=== PATIENT | female | born 1965 | race African-American/Black ===

== ENCOUNTER 2018-03-30 14:36 | Emergency (ER) | payer OTHER ==
[2018-03-30] MEDS: KETOROLAC 60 MG/2 ML VIAL (J1885) IM (17:09)
== END 2018-03-30 18:09 | disposition home or self-care (01) ==
LOC: M ED 14:36
DX: S29.012A Strain of muscle and tendon of back wall of thorax, initial encounter (principal); S53.401A Unspecified sprain of right elbow, initial encounter; V43.52XA Car driver injured in collision with other type car in traffic accident, initial encounter; Y92.410 Unspecified street and highway as the place of occurrence of the external cause; Y93.9 Activity, unspecified; Y99.9 Unspecified external cause status; I10 Essential (primary) hypertension; Z79.899 Other long term (current) drug therapy
CPT/HCPCS: J1885

== ENCOUNTER 2018-08-18 15:32 | Emergency (ER) | payer OTHER ==
[~2018-08-18] VITALS: Ht 162.6 cm; Wt 79.5 kg
[~2018-08-18 15:32] MED LIST: LISI20TA PO; NORCOTAB PO; OMEP40CA2 PO; ROBA500T PO
[2018-08-18] MEDS ORDERED: PREG100CA PO (16:23)
[2018-08-18] MEDS ORDERED: KETOROLAC TROMETHAMINE 10 MG TAB PO ONE (17:30)
[2018-08-18] MEDS ORDERED: methylPREDNISolone INJ 125 MG/2 ML VIAL (J2930) IM ONE (17:30)
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
[2018-08-18 18:56] VITALS: BP 162/82
[2018-08-18] MEDS ORDERED: LIDO5DIS41 TOP (19:06)
[2018-08-18] MEDS ORDERED: KETO10TAB PO (19:06)
[2018-08-18] MEDS ORDERED: PRED20TA PO (19:06)
--- NOTE | 2018-08-18 21:05 | REP ---
The right shoulder three views : There is no fracture or dislocation. Mineralization and joint spaces are normal. There are no calcifications or foreign bodies. Impression: Negative right shoulder . Electronically Signed by Madhu Sr MD 08/18/2018 08:56 P
== END 2018-08-18 19:13 | disposition home or self-care (01) ==
LOC: M ED 15:32
DX: M47.812 Spondylosis without myelopathy or radiculopathy, cervical region (principal); S46.811A Strain of other muscles, fascia and tendons at shoulder and upper arm level, right arm, initial encounter; V44.5XXD Car driver injured in collision with heavy transport vehicle or bus in traffic accident, subsequent encounter; Y92.410 Unspecified street and highway as the place of occurrence of the external cause; R20.0 Anesthesia of skin; R20.2 Paresthesia of skin; M54.9 Dorsalgia, unspecified; Z79.899 Other long term (current) drug therapy
CPT/HCPCS: 72125; 73030; 96372; 99283; J2930

== ENCOUNTER 2019-01-27 09:13 | Emergency (ER) | payer OTHER ==
[~2019-01-27] VITALS: Ht 162.6 cm; Wt 77.7 kg
[2019-01-27 09:13] VITALS: BP 160/85
[~2019-01-27 09:13] MED LIST changes: +CETI10CH PO; +HYDR-3713; +HYDR-3715 PO; +KETO10TAB PO; +LIDO5DIS41 TOP; -LISI20TA PO; +LISI20TA18 PO; -NORCOTAB PO; +OMEP-221; +OXYC1TAB23 PO; +PRED20TA PO; +PREG100CA PO; +VOLT1GEL15
[2019-01-27] MEDS ORDERED: HYDR-3716 (09:18)
[2019-01-27] MEDS ORDERED: DULO1CAP4 (09:18)
--- NOTE | 2019-01-27 10:02 | REP ---
Clinical: Cough and shortness of breath . Comparison: None . Technique: PA and lateral. Findings: The mediastinum and cardiac silhouette are normal. The lung sofia are clear and without acute consolidation, effusion, or pneumothorax. The skeletal structures are intact and normal. Impression: 1. No acute cardiopulmonary process. Electronically Signed by Mihir Subramanian MD 01/27/2019 09:55 A
[2019-01-27] MEDS ORDERED: TESS100C PO (10:17)
[2019-01-27] MEDS ORDERED: BENZONATATE 100 MG CAP PO ONE (10:30)
== END 2019-01-27 10:24 | disposition home or self-care (01) ==
LOC: M ED 09:13
DX: J20.9 Acute bronchitis, unspecified (principal); Z79.899 Other long term (current) drug therapy

== ENCOUNTER 2019-02-10 21:13 | Emergency (ER) | payer OTHER ==
[~2019-02-10] VITALS: Ht 162.6 cm; Wt 78.2 kg
[~2019-02-10 21:13] MED LIST changes: +DULO1CAP4; +HYDR-3716; -LISI20TA18 PO; +LISI20TA19 PO; -OMEP40CA2 PO; +OMEP40CA97 PO; +TESS100C PO
[2019-02-10] MEDS ORDERED: diazePAM 10 MG/2 ML INJ (J3360) IM ONE (22:45)
[2019-02-10] MEDS ORDERED: KETOROLAC 60 MG/2 ML VIAL (J1885) IM ONE (22:45)
[2019-02-10] MEDS ORDERED: SOMA350T PO (23:07)
[2019-02-10] MEDS ORDERED: NAPR250T4 PO (23:07)
[2019-02-10 23:47] VITALS: BP 183/87
== END 2019-02-10 23:50 | disposition home or self-care (01) ==
LOC: M ED 21:13
DX: M54.9 Dorsalgia, unspecified (principal); G89.29 Other chronic pain; I10 Essential (primary) hypertension; Z87.891 Personal history of nicotine dependence; Z79.899 Other long term (current) drug therapy; Z79.891 Long term (current) use of opiate analgesic
CPT/HCPCS: 96372; 99284; J1885; J3360

== ENCOUNTER 2019-02-20 22:47 | Emergency (ER) | payer OTHER ==
[~2019-02-20] VITALS: Ht 162.6 cm; Wt 77.7 kg
[~2019-02-20 22:47] MED LIST changes: +NAPR250T4 PO; +OMEP40CA2 PO; -OMEP40CA97 PO; +SOMA350T PO
[2019-02-20] MEDS ORDERED: NORC1TAB8 PO (23:53)
[2019-02-21] MEDS ORDERED: ANEXSIA, NORCO 7.5MG/325MG TABLET(HYDROCODONE/APAP) PO ONE
[2019-02-21] MEDS ORDERED: ONDANSETRON 4 MG ORAL DISINTEGRATING TAB (Q0162 PER 1MG) PO ONE
[2019-02-21 00:17] VITALS: BP 183/92
== END 2019-02-21 00:18 | disposition home or self-care (01) ==
LOC: M ED 22:47
DX: Z76.0 Encounter for issue of repeat prescription (principal); M54.5 Low back pain; M54.2 Cervicalgia; G89.29 Other chronic pain; Z79.899 Other long term (current) drug therapy; Z79.1 Long term (current) use of non-steroidal anti-inflammatories (NSAID); Z79.891 Long term (current) use of opiate analgesic
CPT/HCPCS: 99283; Q0162

== ENCOUNTER → 2019-03-13 | Outpatient (CLI) | payer OTHER ==
[~2019-03-13] MED LIST changes: +NORC1TAB8 PO
--- NOTE | 2019-03-15 06:23 | ECHO ---
DATE OF PROCEDURE: 03/13/2019 DATE OF : 1965 AGE: 53 ACCOUNT: [id number] REFERRING PHYSICIAN: MIRANDA Medina PATIENT LOCATION: Outpatient. REASON FOR STUDY: Heart murmur 2-D MEASUREMENTS: IVS: 0.9 cm LV: 4.9 cm LVPW: 0.9 cm LA: 3.3 cm Aorta: 2.7 cm RV: 2.8 cm IVC: 1.9 cm DOPPLER MEASUREMENTS: Peak velocity across the aortic valve: 1.3 m/s Peak velocity across the LVOT: 0.92 m/s Mitral E: 0.73 Mitral A: 0.89 Ratio: 0.8 Maximum tricuspid valve velocity: 2.2 m/s 2-D COMMENTS: 1. Normal left ventricular size, wall thickness, and normal global left ventricular systolic function. The estimated ventricular systolic ejection fraction is 55-60%. 2. Normal left atrium. The right atrium and the right ventricle were not well visualized but appeared to be normal in size in limited views. 3. The atrial septum appeared to be normal without evidence of defect or shunt. 4. Normal aortic root. 5. No pericardial effusion seen. 6. Mildly calcified aortic valve with normal leaflet excursion. Mildly calcified mitral annulus with normal anterior mitral valve leaflet motion. Normal tricuspid valve. The pulmonic valve and proximal pulmonary artery branches also appear to be normal. 7. The inferior vena cava was normal in size, central venous pressure is probably normal. DOPPLER: Detects mild aortic radiation, mild mitral regurgitation, and trace tricuspid radiation. The calculated pulmonary artery systolic pressure was normal, less than 30 mmHg. Abnormal relaxation pattern was noted across the mitral valve leaflets as well as the mitral valve annulus consistent with features of grade 1 left ventricular diastolic dysfunction. IMPRESSION: 1. Low normal global left ventricular systolic function. There are features of left ventricular diastolic dysfunction. There are some features of grade 1 left ventricular diastolic dysfunction manifested by abnormal relaxation. 2. Aortic valve sclerosis with mild aortic regurgitation, but no aortic stenosis. 3. Mitral annulus calcification with mild mitral regurgitation. 4. Trace tricuspid regurgitation with a normal calculated pulmonary artery systolic pressure.
== END ==
LOC: M CARPUL 11:46
PROVIDERS: ATTEND Nurse Practitioner Primary Care
DX: R01.1 Cardiac murmur, unspecified (principal)